=== PATIENT | male | born 1960 | race Caucasian/White ===

== ENCOUNTER 2017-12-15 15:23 | Outpatient (CLI) | payer BC, SELFPAY ==
[2017-12-15 18:22] LABS: Cholesterol 174 mg/dL (50-200); Glucose 109 mg/dL (70-100); HDL Cholesterol 35 mg/dL (40-60); LDL CHOLESTEROL 112 mg/dL (<100); Triglyceride 154 mg/dL (30-150)
== END 2017-12-15 15:43 ==
PROVIDERS: PCP Family Medicine; Visit Provider Family Medicine
DX: E78.5 Hyperlipidemia, unspecified (principal)
CPT/HCPCS: 36415; 80061; 82947; 83721

== ENCOUNTER 2019-11-11 07:15 | Outpatient (CLI) | payer BC, SELFPAY ==
[2019-11-14 08:16] LABS: SARS-CoV-2 RNA Undetected (Undetected); SARS-CoV-2 Specimen Source Nasopharynx
== END 2019-11-11 07:35 ==
PROVIDERS: PCP Family Medicine; Visit Provider Family Medicine
DX: Z11.59 Encounter for screening for other viral diseases (principal)
CPT/HCPCS: U0003

== ENCOUNTER 2020-03-22 02:11 | Outpatient (CLI) | payer BC, SELFPAY ==
[2020-03-23 14:42] LABS: COVID-19 RT-PCR UVMMC Result Negative (Negative)
== END 2020-03-22 02:31 ==
PROVIDERS: PCP Family Medicine; Visit Provider Surgery
DX: Z11.59 Encounter for screening for other viral diseases (principal); Z01.818 Encounter for other preprocedural examination
CPT/HCPCS: U0003

== ENCOUNTER 2020-03-26 09:52 | Day surgery (SDC) | payer BC, SELFPAY ==
--- NOTE | 2020-03-26 06:54 | W.COLOREPORT ---
Date of service: 03/26/20 Time of Service: 11:13 Colonoscopy Report Date of procedure: 03/26/20 Pre-op diagnosis general: Colon polyps Post-op diagnosis procedure note: same Procedure: Colonoscopy with polypectomy Surgeon: Jazzy Ellsworth Anesthesia proc note operative: other (General/ASA 2/Ric Sevilla, JESUS) Estimated blood loss (mL): 3 Pathology: other (ascending polyp and sigmoid polyps x4) Complications: None Disposition: same day Indications: The patient is here for Colonoscopy pre-op. His last screening was in 2012, which was remarkable a total of 5 polyps, some of which where tubular adenoma's. He has no family history of colon cancer. He has not had any bowel habit changes. -Discussed colonoscopy bowel prep as well as the procedure. Discussed possible complications of the procedure to include bleeding, pain, perforation, missed small lesion/polyp, sore throat, aspiration and adverse reaction to the medications. Questions were answered to patient?s satisfaction. No guarantees were implied or given. Prep: Miralax/Dulcolax Procedure Start Time: : Procedure End Time: : Retraction Time: 24 minutes Findings: 5 small sessile polyps Procedure Description: After informed consent was obtained the patient was taken to the procedure room and placed in a left decubitous position. Monitors were applied and a time out was done. The patients name, date of , procedure, allergies to medications and metal in their body was reviewed. The patient was then sedated. Once sedated and comfortable a rectal exam was done. External exam was normal. Internal exam revealed a normal sphincter tone and no palpable masses. The prostate felt smooth. The scope was then introduced and retro-flexed. No internal hemorrhoids, polyps or masses were identified on retro-flexion. The scope was then advanced to the cecum without difficulty. The ileocecal valve and appendiceal orifice were identified. The prep was adequate. The scope was then slowly retracted over 24 minutes back into the rectum. Polyps were removed with cold forceps in the ascending colon and sigmoid colon. There was no diverticulosis noted. The scope was removed and the patient was woken up and taken back to Same day surgery in stable condition. The patient tolerated the procedure well and there were no immediate complications. Follow up: The patient should follow up in 5 years unless they develop changes in bowel habits or other new gastrointestinal complaints.
--- NOTE | 2020-03-26 06:54 | W.PM.DSUDISC ---
Discharge Plan Disposition Patient Disposition: HOME Condition: Good Discharge Details Reason For Visit: Colonoscopy Attending Provider: Jazzy Ellsworth Primary Care Provider: Moe Ronquillo Home Meds and New Rx's Prescriptions: Continued Fluarix Quad 8066-2635 (PF) 60 mcg (15 mcg x 4)/0.5 mL syringe 0.5 ml IM ONCE Qty: 1 RF: 0 albuterol sulfate [ProAir HFA] 90 mcg/actuation HFA aerosol inhaler 1 - 2 puff Inhalation Q6H PRN Qty: 2 RF: 2 ASSESS PEAK FLOW METER 1 EACH EACH 1 ea Miscellaneous PRN Qty: 1 RF: 0 tadalafil [Cialis] 5 mg tablet 5 - 20 mg PO DAILY PRN (Reason: sexual activity) RF: 0 Discontinued polyethylene glycol 3350 17 gram/dose powder 238 g PO ONCE Qty: 238 RF: 0 bisacodyl [Dulcolax (bisacodyl)] 5 mg tablet,delayed release (DR/EC) 5 mg PO ONCE Qty: 4 RF: 0 Discharge Instructions Instructions: Colorectal Polyps (DC) Additional Instructions: Findings: 5 small polyps Follow up: 5 years Please call if you develop: fevers >101.5 Nausea or Vomiting Abdominal pain that is not transient DAY SURGERY UNIT POST ENDOSCOPY INSTRUCTIONS 1. Because there will be medication in your system for the next 24 hours, you may feel a little sleepy. Your coordination will be affected. Therefore: a. Do not drive or operate dangerous equipment for 24 hours. b. Do not drink alcohol beverages for 24 hours (not even beer). c. Plan to go home and rest for the day. 2. Generally there are no restrictions on your activity after a day or so has gone by, but you may feel a bit fatigued for a few days. 3 After you arrive home you may have a light meal and return to a normal diet as you can tolerate it without feeling sick to your stomach. 4. After surgery, you may feel pain or discomfort. This should be only transient, but if it persists please contact your doctor. 5. If there are any questions regarding the findings of your procedure, please feel free to contact your doctor. 6. If you are unable to contact your doctor with a problem, contact the hospital at [phone]. 7. Continue all your regular medications unless directed otherwise. I understand the above instructions and have no questions. Signature of Patient or Responsible Adult Escort Date/Time Name of Responsible Adult Escort Signature of Nurse Date/Time Activity:: Activity as Tolerated Diet:: As Tolerated Discharge Orders Discharge Orders: Discharge Order (Routine); Ordered 03/26/20 Ordered By: Jazzy Ellsworth
[2020-03-26 10:01] VITALS: BP 149/89; PULSE 65; RESP 16; TEMP 36.7; O2SAT 94
[2020-03-26] MEDS: Lactated Ringers 1,000 ML 80 ML IV (10:29)
--- NOTE | 2020-03-26 11:22 | BOWEL_PTH ---
PATIENT: Bhupinder Yen LOC: [facility] U#:[id number] AGE/SX: 59/M ROOM: RE03/26/[address]: Jazzy Ellsworth MD : 1960 BED: DIS: 03/26/2020 SPEC #: [id number] RECD: 03/26/20 12:55 STATUS: SONAM REQ #: [id number] CHRISSY: 03/26/20 11:[address]: Jazzy Ellsworth DEPT: Surgical Specimen RECD BY: Rosangela Rayo ENTERED: 03/26/20 12:55 SP TYPE: Bowel OTHR DR: Moe Ronquillo MD Tissues: 1 - BIOPSY BOWEL 2 - BIOPSY BOWEL Procedures: GROSS AND MICRO LEVEL 4 Comments: [id number]
[2020-03-26 12:12] VITALS: BP 128/84; PULSE 65; RESP 16; TEMP 36.5; O2SAT 95
== END 2020-03-26 12:35 | disposition home or self-care (01) ==
LOC: SUR 09:52
PROVIDERS: PCP Family Medicine; Visit Provider Surgery
PROC: 0DJD8ZZ Inspection of Lower Intestinal Tract, Via Natural or Artificial Opening Endoscopic (ICD-10-PCS; CPT 45378; principal; 2020-03-26 11:30)
DX: Z12.11 Encounter for screening for malignant neoplasm of colon (principal); Z86.010 Personal history of colon polyps; D12.2 Benign neoplasm of ascending colon; Z86.711 Personal history of pulmonary embolism
CPT/HCPCS: 45380; 88305; J2001

== ENCOUNTER 2020-06-27 13:56 | Outpatient (CLI) | payer BC, SELFPAY ==
--- NOTE | 2020-06-27 13:45 | RT.EKG_ITS ---
APPROVED REPORT Exam: Resting ECG Patient Location: O HR:61 bpm ECG Measurements Heart Rate 61 AXIS AK 206 P 14 QRSd 106 QRS -21 QT 432 T 18 QTc 436 Conclusion Sinus rhythm...normal P axis, V-rate 60- 99 Borderline prolonged AK interval...AK >202, V-rate 50- 90
== END 2020-06-27 13:57 | disposition home or self-care (01) ==
LOC: DI.CM 13:56
PROVIDERS: PCP Family Medicine; Visit Provider Family Medicine
DX: R07.9 Chest pain, unspecified (principal)
CPT/HCPCS: 93010

== ENCOUNTER 2020-11-07 02:34 | Outpatient (CLI) | payer BC, SELFPAY ==
[2020-11-07 12:41] LABS: HCT 43.5 % (40.0-50.0); HGB 14.7 g/dL (13.5-17.5); MCH 31.5 pg (27.0-33.0); MCHC 33.8 % (32.0-36.0); MCV 93.1 fL (80-95); MPV 10.6 fL (8.0-11.0); Platelet Count 224 10^3/uL (130-400); RBC 4.67 10^6/uL (4.36-5.78); RDW 12.4 % (11.8-14.1); RDW-SD 42.7 fL; WBC 6.88 10^3/uL (4.4-10.8)
[2020-11-07 12:56] LABS: Calculated LDL 90 mg/dL (<100); Cholesterol 178 mg/dL (<200); HDL Cholesterol 34 mg/dL (40-60); Triglyceride 273 mg/dL (<150)
[2020-11-07 18:00] LABS: PSA, Screening 0.5 ng/mL (0.0-4.5)
[2020-11-13 17:01] LABS: Testosterone, Total 473 ng/dL (240-950)
== END 2020-11-07 02:35 | disposition home or self-care (01) ==
LOC: LOS 02:34
PROVIDERS: PCP Family Medicine; Visit Provider Family Medicine
DX: Z00.00 Encounter for general adult medical examination without abnormal findings (principal); E78.5 Hyperlipidemia, unspecified; R53.83 Other fatigue; Z12.5 Encounter for screening for malignant neoplasm of prostate
CPT/HCPCS: 36415; 80061; 84153; 84402; 84403; 85027

== ENCOUNTER 2021-04-03 03:09 | Outpatient (CLI) | payer BC, SELFPAY ==
[2021-04-03 13:07] LABS: Hemoglobin A1C 6.4 % (<5.7)
[2021-04-03 14:05] LABS: Potassium 4.6 mmol/L (3.5-5.1)
[2021-04-03 14:09] LABS: COMMENT (LAB VIEW ONLY) 150.77 mg/dL; Microalb ug/mg Crea 3.5 ug/mg Cr
== END 2021-04-03 03:10 | disposition home or self-care (01) ==
LOC: LBO 03:09
PROVIDERS: PCP Family Medicine; Visit Provider Family Medicine
DX: I10 Essential (primary) hypertension (principal); E11.65 Type 2 diabetes mellitus with hyperglycemia
CPT/HCPCS: 36415; 82043; 82565; 82570; 83036; 84132

== ENCOUNTER 2022-06-17 16:18 | Outpatient (REF) | payer BC, SELFPAY ==
[2022-06-17 21:11] LABS: Microalb ug/mg Crea 7.1 ug/mg Cr
== END 2022-06-17 16:19 | disposition home or self-care (01) ==
LOC: LBN 16:18
PROVIDERS: PCP Family Medicine; Visit Provider Family Medicine
DX: E11.9 Type 2 diabetes mellitus without complications (principal)
CPT/HCPCS: 82043; 82570

== ENCOUNTER 2023-03-19 10:37 | Outpatient (CLI) | payer BC, SELFPAY ==
[2023-03-19 09:48] LABS: Calculated LDL 115 mg/dL (<100); Cholesterol 188 mg/dL (<200); Estimated GFR 84.57 (mL/min/1.73m2); HDL Cholesterol 38 mg/dL (40-60); Triglyceride 179 mg/dL (<150)
== END 2023-03-19 10:38 | disposition home or self-care (01) ==
LOC: LBO 10:37
PROVIDERS: PCP Family Medicine; Visit Provider Family Medicine
DX: I10 Essential (primary) hypertension (principal); E78.5 Hyperlipidemia, unspecified
CPT/HCPCS: 36415; 80061; 82565

== ENCOUNTER 2023-07-07 15:53 | Outpatient (REF) | payer BC, SELFPAY ==
[2023-07-09 18:31] LABS: COMMENT (LAB VIEW ONLY) 149.07 mg/dL; Microalb ug/mg Crea 2.2 ug/mg Cr
== END 2023-07-07 15:54 | disposition home or self-care (01) ==
LOC: LBN 15:53
PROVIDERS: PCP Family Medicine; Visit Provider Family Medicine
DX: E11.9 Type 2 diabetes mellitus without complications (principal)
CPT/HCPCS: 82043; 82570

== ENCOUNTER 2024-01-20 10:42 | Outpatient (CLI) | payer BC, SELFPAY ==
[2024-01-20 12:44] LABS: Estimated GFR 84.05 (mL/min/1.73m2)
== END 2024-01-20 10:43 | disposition home or self-care (01) ==
LOC: LOS 10:42
PROVIDERS: PCP Family Medicine; Referring Provider Family Medicine; Visit Provider Family Medicine
DX: I10 Essential (primary) hypertension (principal); E11.9 Type 2 diabetes mellitus without complications; Z23 Encounter for immunization; E78.5 Hyperlipidemia, unspecified; K63.5 Polyp of colon; Z00.00 Encounter for general adult medical examination without abnormal findings
CPT/HCPCS: 36415; 82565

== ENCOUNTER 2024-03-28 08:08 | Day surgery (SDC) | payer BC, SELFPAY ==
--- NOTE | 2024-03-27 17:31 | W.PM.DSUDISC ---
Date of service: 03/28/24 Discharge Plan Disposition Patient Disposition: Home Condition: Good Discharge Details Reason For Visit: screening colonoscopy Attending Provider: Bassam Zheng Primary Care Provider: Moe Ronquillo Home Meds and New Rx's Prescriptions: Continued Fluarix Quad [id number] (PF) 60 mcg (15 mcg x 4)/0.5 mL syringe 0.5 ml IM ONCE Qty: 1 0RF albuterol sulfate [ProAir HFA] 90 mcg/actuation HFA aerosol inhaler 1 - 2 puff Inhalation Q6H PRN Qty: 2 2RF losartan 25 mg tablet 25 mg PO DAILY Qty: 90 3RF rosuvastatin 5 mg tablet 5 mg PO DAILY Qty: 90 1RF ASSESS PEAK FLOW METER 1 EACH EACH 1 ea Miscellaneous PRN Qty: 1 Discontinued bisacodyl [Dulcolax (bisacodyl)] 5 mg tablet,delayed release (DR/EC) 5 mg PO ONCE Qty: 4 0RF Rx Instructions: Take per colonoscopy instructions provided by ordering providers office polyethylene glycol 3350 17 gram/dose powder 17 g PO ONCE Qty: 238 0RF Rx Instructions: Take per colonoscopy instructions provided by ordering providers office Discharge Instructions Instructions: Diverticulosis Additional Instructions: Talib, is very nice meeting you today, and I hope you are comfortable throughout the procedure. Everything went very smoothly. Your prep was outstanding and I could see everything fine. I did not find any tumors or polyps today. I did see some diverticulosis. These are little pockets or pouches to form through the muscular portion of the colon wall. They can get infected or inflamed during episodes that we refer to as diverticulitis. When that happens, patients usually have quite a bit of pain usually in the left lower side of their abdomen. It is often times treated with antibiotics, though there is some debate about whether or not that is the best strategy. Hopefully, years will never bother you. I did attach a little bit of information here about typical approaches to management of diverticular problems. Based on the type of polyp that had removed during her previous colonoscopy, I do recommend a 5-year interval for your next screening. If you need anything or have any questions in the meantime, please do not hesitate to ask. 1. If tolerated, consume a soft, low fiber diet for 1-2 days. 2[address] Do not drive, drink alcohol, operate machinery, make critical decisions, or do activities that require coordination or balance for 24 hours. 3. Because air was put into your colon during the procedure, expelling air from your rectum (passing gas or farting) is normal. 4. You may not have a bowel movement for 1-3 days because of the colonoscopy prep. This is normal. 5. Go directly to the emergency room if you notice any of the following: Develop chills (warm to touch), or if you have a thermometer and your temperature is above 101 Difficulty breathing or difficultly swallowing Persistent vomiting Severe abdominal pain, other than gas cramps Severe chest pain Black, tarry stools Any bleeding ? exceeding one tablespoon 6. Call your physician if the site where your intravenous was started becomes red, swollen, painful, and warm to touch. 7. Your physician has reviewed your pre-procedure medications. Please continue to take those medications as previously ordered. You will be given specific information/education regarding any changes to your medications before leaving. Activity:: Activity as Tolerated Diet:: As Tolerated Discharge Orders Discharge Orders: Discharge Order (Routine); Ordered 03/27/24 Ordered By: Bassam Zheng DS: Diagnosis Discharge Diagnosis (1) Encounter for screening colonoscopy: Status: Acute Asessment and Plan: Negative screening colonoscopy today; based on sessile serrated adenoma that was removed previously, 5-year interval for the next colonoscopy
--- NOTE | 2024-03-27 17:33 | W.COLOREPORT ---
Date of service: 03/28/24 Time of Service: 10:29 Colonoscopy Report Date of procedure: 03/28/24 Pre-op diagnosis general: screening colonoscopy Post-op diagnosis procedure note: other (Diverticulosis) Procedure: colonoscopy Surgeon: Bassam Zheng Anesthesia Type: General:No Airway Estimated blood loss (mL): 0 Pathology: none sent Complications: None Disposition: same day Indications: Talib is 63 years old. He has a history of adenomatouos polyps. He needs his next screening colonoscopy Prep: Miralax/Dulcolax Procedure Start Time: 10:09 Procedure End Time: 10:21 Retraction Time: 9 Findings: Sigmoid diverticulosis Procedure Description: After the induction of anesthesia, and with the patient in left lateral decubitus position, I began by performing an external anorectal exam.? Perineum and skin were normal, as was the anal verge.? There was no evidence of external hemorrhoids.? Next, I performed a digital rectal exam.? I did not appreciate any abnormal findings.? Next, I advanced a colonoscope into the rectal vault.? I performed retroflexion.? This appeared normal.? Using insufflation, I then advanced the colonoscope beyond the rectal folds and into the sigmoid colon before advancing towards the cecum.? The quality of the prep was outstanding.? The scope was noted to be in the cecum by identification of the ileocecal valve and appendiceal orifice.? I then began withdrawing the colonoscope using repeated irrigation as necessary for full evaluation of the colonic mucosa. There was some sigmoid diverticulosis. Once the scope was withdrawn to the level of the rectum, great care was taken to examine portions of the rectal folds.? Finally, the scope was withdrawn and the patient was brought to the same-day surgery recovery unit as the anesthetic wore off. ?The findings and instructions were shared with the patient prior to discharge. [place] Bowel Prep [place] Bowel Prep Right Colon: 3 Left Colon: 3 Transverse Colon: 3 Total Score: 9
[2024-03-28 08:25] VITALS: BP 167/81; PULSE 64; RESP 16; TEMP 36.2; O2SAT 96
[2024-03-28] MEDS: Lactated Ringers 1,000 ML 80 ML IV (08:42)
--- NOTE | 2024-03-28 09:08 | W.ANESPRE ---
General Info Date of Service Date Performed: 03/28/24 Height: 5 ft 8 in Weight: 86 kg Body Mass Index (BMI): 28.8 Surgical Procedure: Operation Date: 03/28/24 09:50 Proposed Procedure Side Surgeon p Colonoscopy Bassam Zheng MD Meds Allergies and Home Medications Allergies Allergy/AdvReac Type Severity Reaction Status Date / Time No Known Allergies Allergy Verified 03/28/24 08:23 Home Medication ?Medication ?Instructions ?Recorded Assess Peak Flow Meter 1 ea miscellaneous PRN #1 ea 07/02/12 albuterol sulfate 90 mcg/actuation 1 - 2 puff inhalation Q6H PRN ##2 12/30/22 aerosol inhaler (ProAir HFA) losartan 25 mg tablet 25 mg PO DAILY #90 tabs 01/20/24 rosuvastatin 5 mg tablet 5 mg PO DAILY #90 tabs 01/20/24 Current Visit Medications: Current Medications Generic Name Dose Route Start Last Admin Trade Name Freq PRN Reason Stop Dose Admin Ringer's Solution 1,000 mls @ 80 mls/hr 03/28/24 08:30 03/28/24 08:42 IV 04/27/24 08:29 80 mls/hr INFUSION MIARNDA Administration IV Miscellaneous Supplies 1 each 03/28/24 06:00 Iv Access IV 03/28/24 23:59 DIRECTED MIRANDA Ondansetron HCl 4 mg 03/27/24 17:34 Ondansetron 4 Mg/2 Ml Vial IVP 04/26/24 17:33 Q4H PRN PRN Nausea / Vomiting Sodium Chloride 0 ml 03/28/24 06:00 Normal Saline Flush 10 Ml Syr IV 03/28/24 23:59 PRN PRN Sodium Chloride 0 ml 03/28/24 06:00 Normal Saline 10 Ml Vial IJ 03/28/24 23:59 DIRECTED PRN Sterile Water 0 ml 03/28/24 06:00 Water,Injection,Sterile 10 Ml Vial IJ 03/28/24 23:59 DIRECTED PRN PFSH Active Problems Active Problems: Problem Status Onset Code Encounter for screening colonoscopy Acute Z12.11 Essential hypertension Acute I10 Diabetes mellitus Chronic E11.9 Chest pain Acute R07.9 Sessile colonic polyp Acute K63.5 Hyperplastic colon polyp Acute K63.5 Status post vasectomy Acute Z98.52 Status post laparoscopy Acute Z98.890 Hyperlipidemia Acute 07/06/07 E78.5 Asthma Acute 07/09/12 J45.909 Fatigue Acute R53.83 Polyp of colon Acute K63.5 Medical History Medical History Asthma Pulmonary embolism pt. denies this Surgical History Surgical History Vasectomy Laparoscopy, diagnostic Tobacco Smoking/Tobacco Use Status: Never Passive smoking exposure: Yes Second hand exposure: Yes Alcohol Alcohol Intake: current Alcohol intake frequency: holidays/special occasions only Alcohol type: beer Details: 6 or more drinks monthly or less Substance Use Substance use: Never Substance use type: does not use Vital Signs and Lab Results Vital Signs Most Recent Vital Signs in EMR: Most Recent Vital Signs Temp Pulse Resp BP Pulse Ox 36.2 C L 64 16 167/81 H 96 03/28/24 08:25 03/28/24 08:25 03/28/24 08:25 03/28/24 08:25 03/28/24 08:25 Point of Care Results Point of Care Results: Finger Stick Blood Glucose 160 03/28/24 08:32 Lab Results Blood Type / Crossmatch: No Data to Display Complete Blood Count: No Data to Display Complete Metabolic Panel: No Data to Display Liver Function Panel: No Data to Display Coagulation Panel: No Data to Display Cardiac Panel: No Data to Display Arterial Blood Gas: No Data to Display Venous Blood Gas: No Data to Display Pancreas Panel: No Data to Display Thyroid Panel: No Data to Display Infectious Disease: No Data to Display Blood Cultures: No Data to Display Toxicology Panel: No Data to Display Imaging and Studies Imaging and Studies Study information below may be from another EMR and interpreted by another provider. Please see original notes in EMR for more complete details. EKG Summary: 06/27/20: Exam: Resting ECG Patient Location: O HR:61 bpm ECG Measurements Heart Rate 61 AXIS GA 206 P 14 QRSd 106 QRS -21 QT 432 T18 QTc 436 Conclusion Sinus rhythm...normal P axis, V-rate 60- 99 Borderline prolonged GA interval...GA >202, V-rate 50- 90 Anesthesia Assessment and Plan Anesthesia History Personal History: No History of Anesthesia Complications Family History: No Family History of Anesthesia Complications Exercise Tolerance Exercise Tolerance: Metabolic Equivalents>4 Pertinent Negatives Pertinent Negatives: No Symptoms of GERD, No Major Cardiovascular Symptoms or Complaints and No Major Pulmonary Symptoms or Complaints Cardiac & Pulmonary Exam Cardiac Exam: Normal S1/S2 Heart Sounds Pulmonary Exam: Clear Bilateral Breath Sounds Implantable Cardiac Device Does patient have a Pacemaker or an ICD?: No Airway Exam Known Difficult Airway: No Mallampati Class: 3 Mouth Opening: Normal (> 3cm) Thyromental Distance: Greater than 3 cm Neck Range of Motion: Full ROM Neck Circumference: Thick Teeth Condition: Normal Dentition ASA Classification ASA Score: ASA 2 Emergency Case?: No NPO Status NPO Status: NPO Clears >2 hours, Solids >8 hours Anesthesia Plan Resuscitation Status: Full Code Anesthesia Technique: General Anesthesia Airway Planned: Natural Airway Monitors Used: Standard Monitors
[2024-03-28 09:42] VITALS: BMI 28.8
[2024-03-28 10:25] VITALS: BP 106/67; PULSE 68; RESP 18; TEMP 36.2; O2SAT 94
--- NOTE | 2024-03-28 10:34 | W.ANESPOSTOP ---
Postoperative Evaluation Date, Time and Location Date Performed: 03/28/24 Time Performed: 10:34 Patient Location: Day Surgery Unit Vital Signs Most Recent Imported Vital Signs: Most Recent Vital Signs Temp Pulse Resp BP Pulse Ox 36.2 C L 68 18 106/67 94 03/28/24 10:25 03/28/24 10:25 03/28/24 10:25 03/28/24 10:03/28/24 10:25 Pain Score Most Recent Pain Score: Most Recent Pain Score Pain Level 0 03/28/24 10:25 Assessment Mental Status: Awake (Alert & Oriented to Patient Baseline) Airway and Respiratory Function: Patent airway with normal (patient baseline) respiratory exam Cardiovascular Function: Hemodynamically Stable Hydration Status: Adequately Hydrated Nausea & Vomiting: No Nausea or Vomiting Pain: Pt. Denies Any Pain Peripheral Nerve Block: Patient did not receive a nerve block
[2024-03-28 10:53] VITALS: BP 109/87; PULSE 62; RESP 16; TEMP 36.1; O2SAT 94
== END 2024-03-28 11:24 | disposition home or self-care (01) ==
LOC: SUR 08:08
PROVIDERS: PCP Family Medicine; Visit Provider Surgery
PROC: 0DJD8ZZ Inspection of Lower Intestinal Tract, Via Natural or Artificial Opening Endoscopic (ICD-10-PCS; CPT 45378; principal; 2024-03-28 09:45)
DX: Z12.11 Encounter for screening for malignant neoplasm of colon (principal); E11.9 Type 2 diabetes mellitus without complications; I10 Essential (primary) hypertension; K57.30 Diverticulosis of large intestine without perforation or abscess without bleeding
CPT/HCPCS: 45378; J2704

== ENCOUNTER 2025-01-02 10:45 | Outpatient (CLI) | payer BC, MEDICARE, SELFPAY ==
[2025-01-02 11:55] LABS: AST 27 U/L (15-37)
[2025-01-03 09:51] LABS: Lyme Ab w Rflx to Lyme Confirm Negative (Negative)
[2025-01-05 14:27] LABS: B. miyamotoi PCR Negative (Negative); Babesia divergens/MO-1 Negative (Negative); Ehrlichia muris eauclairensis Negative (Negative)
== END 2025-01-02 10:46 | disposition home or self-care (01) ==
LOC: LBO 10:50
PROVIDERS: PCP Family Medicine; Visit Provider Nurse Practitioner Family
DX: W57.XXXA Bitten or stung by nonvenomous insect and other nonvenomous arthropods, initial encounter (principal); E78.5 Hyperlipidemia, unspecified
CPT/HCPCS: 36415; 87798; 84450; 86618